=== PATIENT | female | born 1980 | race Caucasian/White ===

== ENCOUNTER → 2022-06-03 | Day surgery (SDC) | payer OTHER ==
[~2022-06-03] VITALS: Ht 162.6 cm; Wt 113.4 kg
[~2022-06-03] MED LIST: LISINOPRIL10 MG PO; METFORMIN HCL750 MG PO; PERCOCET 5-3251 EACH PO; PRILOSEC20 MG PO; VITAMIN D3 PO; allergy med PO
[2022-06-03 06:50] LABS: HCG (URINE) SCREEN NEGATIVE (NEGATIVE)
[2022-06-03 07:12] LABS: HCT 35.7 % (37.0-47.0); HGB 11.8 g/dl (12.5-16.0); MCHC 33.1 g/dL (32.0-36.0); MCV 90.8 fL (78.0-100.0); MPV 10.1 fL (6.0-9.5); RBC 3.93 M/uL (4.20-5.40); RDW 13.7 % (11.5-14.0); WBC 6.3 K/uL (4.0-10.5)
--- NOTE | 2022-06-03 13:32 | NUR ---
PATIENT STATES SHE HAS PAIN MEDS AT HOME FROM PREVIOUSLY CANCELLED SURGERY
== END | disposition home or self-care (01) ==
LOC: FAS 06:22
PROVIDERS: Specialist
DX: D25.9 Leiomyoma of uterus, unspecified (principal); N87.9 Dysplasia of cervix uteri, unspecified; N72 Inflammatory disease of cervix uteri; D64.9 Anemia, unspecified; E66.01 Morbid (severe) obesity due to excess calories; I10 Essential (primary) hypertension; E78.5 Hyperlipidemia, unspecified; Z79.899 Other long term (current) drug therapy
CPT/HCPCS: 36415; 84703; 86850; 86900; 86901; 93005; J0690; J1100; J1170; J2250; J2405; J2704; J3010; J7120